=== PATIENT | male | born 1980 | race Hispanic/Latino ===

== ENCOUNTER 2024-03-23 09:38 | Emergency (ER) | payer MEDICARE, OTHER ==
[~2024-03-23] VITALS: Ht 175.3 cm; Wt 66.7 kg
[2024-03-23] MEDS ORDERED: CLINDAMYCIN HC150 MG PO (09:58)
[2024-03-23 10:18] VITALS: BP 129/84; PULSE 62; RESP 16; TEMP 97; O2SAT 100
== END 2024-03-23 10:00 | disposition home or self-care (01) ==
LOC: ER 09:43
DX: L02.31 Cutaneous abscess of buttock (principal); I10 Essential (primary) hypertension; E78.5 Hyperlipidemia, unspecified; F17.210 Nicotine dependence, cigarettes, uncomplicated; Z86.73 Personal history of transient ischemic attack (TIA), and cerebral infarction without residual deficits
CPT/HCPCS: 99282

== ENCOUNTER 2024-05-02 07:15 | Outpatient (RCR) | payer MEDICARE ==
[~2024-05-02 07:15] MED LIST: CLINDAMYCIN HC150 MG PO
== END 2024-05-28 ==
LOC: PT 07:15
PROVIDERS: ATTEND Psychiatry & Neurology Clinical Neurophysiology
DX: R13.10 Dysphagia, unspecified (principal); R47.1 Dysarthria and anarthria

== ENCOUNTER → 2025-01-26 | Outpatient (RCR) | payer MEDICARE | LOC: OT 01-09 08:28 → PT 01-09 08:53 → OT 01-12 10:00 → PT 01-12 11:00 → OT 01-15 09:39 → PT 01-15 09:39 → OT 01-17 10:00 → PT 01-17 10:51 → OT 01-24 14:00 → PT 01-24 15:00 → OT 15:00 | PROVIDERS: ATTEND Physician Assistant | DX: R47.1 Dysarthria and anarthria (principal); F06.8 Other specified mental disorders due to known physiological condition ==

== ENCOUNTER → 2025-02-26 | Outpatient (RCR) | payer MEDICARE | LOC: OT 01-31 10:50 → PT 02-02 12:27 | PROVIDERS: ATTEND Physician Assistant | DX: R47.1 Dysarthria and anarthria (principal); F06.8 Other specified mental disorders due to known physiological condition; G11.9 Hereditary ataxia, unspecified ==

== ENCOUNTER 2025-03-27 11:00 | Outpatient (RCR) | payer MEDICARE | END 2025-03-28 | LOC: ST 11:00 | PROVIDERS: ATTEND Physician Assistant | DX: R47.1 Dysarthria and anarthria (principal) | CPT/HCPCS: 92523 ==

== ENCOUNTER 2025-05-13 11:35 | Emergency (ER) | payer MEDICARE, OTHER ==
[~2025-05-13] VITALS: Ht 170.2 cm; Wt 70.3 kg
[2025-05-13 11:40] VITALS: TEMP 98.4
[2025-05-13] MEDS ORDERED: LOSARTAN POTASS25 MG PO (11:54)
[2025-05-13] MEDS ORDERED: LITHIUM CARBON450 MG PO (11:54)
[2025-05-13] MEDS ORDERED: ROSUVASTATIN CA10 MG PO (11:55)
[2025-05-13] MEDS ORDERED: VENTOLIN HFA18 GM INH (12:57)
[2025-05-13 13:41] VITALS: PULSE 64; RESP 15; O2SAT 99
== END 2025-05-13 13:30 | disposition home or self-care (01) ==
LOC: ER 11:39
DX: R05.9 Cough, unspecified (principal); J44.9 Chronic obstructive pulmonary disease, unspecified; I10 Essential (primary) hypertension; E78.5 Hyperlipidemia, unspecified; F31.9 Bipolar disorder, unspecified; Z86.73 Personal history of transient ischemic attack (TIA), and cerebral infarction without residual deficits; F17.210 Nicotine dependence, cigarettes, uncomplicated
CPT/HCPCS: 71045; 99283